=== PATIENT | female | born 1975 | race Caucasian/White ===

== ENCOUNTER 2018-12-11 09:27 | Emergency (ER) | payer BC ==
[~2018-12-11] VITALS: Ht 172.7 cm; Wt 97.5 kg
[~2018-12-11 09:27] MED LIST: ALBUTEROL INHAL17 GM IH; AZITHROMYCIN 2250 MG PO; E-MYCIN333 MG PO; ESTRACE; FLEXERIL; MEDROLDOSEPACK PO; NORCO 5-325 TA1 EACH PO; ZPAK PO
[2018-12-11 09:34] VITALS: BP 132/76
[2018-12-11] MEDS ORDERED: ULTRAM 50MG TAB50 MG PO (09:49)
[2018-12-11] MEDS ORDERED: BACTRIM DS TAB1 EACH PO (09:49)
== END 2018-12-11 10:05 | disposition home or self-care (01) ==
LOC: M.ERS 09:27
DX: S90.861A Insect bite (nonvenomous), right foot, initial encounter (principal); F17.200 Nicotine dependence, unspecified, uncomplicated; Z90.49 Acquired absence of other specified parts of digestive tract; Z90.89 Acquired absence of other organs; Z90.710 Acquired absence of both cervix and uterus; Z98.890 Other specified postprocedural states; Z88.1 Allergy status to other antibiotic agents; Z88.0 Allergy status to penicillin; W57.XXXA Bitten or stung by nonvenomous insect and other nonvenomous arthropods, initial encounter; Y92.89 Other specified places as the place of occurrence of the external cause; Y93.89 Activity, other specified; Y99.8 Other external cause status

== ENCOUNTER 2019-01-17 01:32 | Emergency (ER) | payer BC, OTHER ==
[~2019-01-17] VITALS: Ht 172.7 cm; Wt 97.5 kg
[~2019-01-17 01:32] MED LIST changes: +BACTRIM DS TAB1 EACH PO; +ULTRAM 50MG TAB50 MG PO
[2019-01-17] MEDS ORDERED: AMOXICILLIN500 M1 PO (01:49)
[2019-01-17] MEDS ORDERED: TRAMADOL 50 MG50 MG PO (01:49)
[2019-01-17 02:00] VITALS: BP 136/78
== END 2019-01-17 02:00 | disposition home or self-care (01) ==
LOC: M.ERS 01:32
DX: J02.9 Acute pharyngitis, unspecified (principal); F17.210 Nicotine dependence, cigarettes, uncomplicated; Z88.0 Allergy status to penicillin; Z88.1 Allergy status to other antibiotic agents; Z90.49 Acquired absence of other specified parts of digestive tract; Z90.710 Acquired absence of both cervix and uterus; Z98.890 Other specified postprocedural states

== ENCOUNTER 2019-04-14 01:01 | Emergency (ER) | payer BC ==
[~2019-04-14] VITALS: Ht 172.7 cm; Wt 98.0 kg
[~2019-04-14 01:01] MED LIST changes: +AMOXICILLIN500 M1 PO; +TRAMADOL 50 MG50 MG PO
[2019-04-14] MEDS ORDERED: PHENTERMINE H37.5 MG PO (01:32)
[2019-04-14 01:39] LABS: URINE BILIRUBIN NEGATIVE (Negative); URINE BLOOD NEGATIVE (Negative); URINE CLARITY CLEAR; URINE COLOR YELLOW; URINE GLUCOSE-RANDOM NEGATIVE (Negative); URINE KETONES NEGATIVE (Negative); URINE LEUKOCYTES NEGATIVE (Negative); URINE NITRITE NEGATIVE (Negative); URINE PROTEIN NEGATIVE (Negative); URINE UROBILINOGEN 0.2 E.U./dl (0.2-1.0)
[2019-04-14] MEDS ORDERED: LEVAQUIN 500 M500 MG PO (03:02)
[2019-04-14] MEDS ORDERED: TYLENOL WITH CO1 TA1 PO (03:02)
[2019-04-14 03:23] VITALS: BP 130/79
== END 2019-04-14 03:23 | disposition home or self-care (01) ==
LOC: M.ERS 01:01
PROVIDERS: Emergency Medicine
DX: R59.1 Generalized enlarged lymph nodes (principal); H92.01 Otalgia, right ear; Z88.1 Allergy status to other antibiotic agents; Z88.0 Allergy status to penicillin; Z90.89 Acquired absence of other organs; Z90.710 Acquired absence of both cervix and uterus; Z90.49 Acquired absence of other specified parts of digestive tract

== ENCOUNTER 2019-07-22 08:34 | Emergency (ER) | payer BC ==
[~2019-07-22] VITALS: Ht 172.7 cm; Wt 97.5 kg
[~2019-07-22 08:34] MED LIST changes: +LEVAQUIN 500 M500 MG PO; +PHENTERMINE H37.5 MG PO; +TYLENOL WITH CO1 TA1 PO
[2019-07-22] MEDS ORDERED: TOPAMAX100 MG PO (08:52)
[2019-07-22] MEDS ORDERED: NAPROSYN500 MG PO (09:42)
[2019-07-22 10:04] VITALS: BP 140/91
== END 2019-07-22 09:55 | disposition home or self-care (01) ==
LOC: M.ERS 08:34
DX: M18.12 Unilateral primary osteoarthritis of first carpometacarpal joint, left hand (principal); F17.210 Nicotine dependence, cigarettes, uncomplicated; Z90.49 Acquired absence of other specified parts of digestive tract; Z90.710 Acquired absence of both cervix and uterus; Z88.0 Allergy status to penicillin; Z88.1 Allergy status to other antibiotic agents